=== PATIENT | male | born 2000 | race Caucasian/White ===

== ENCOUNTER 2023-05-08 13:09 | Outpatient (AMB) | payer OTHER, SELFPAY ==
--- NOTE | 2023-05-08 13:15 | MHC.OFFVIS ---
Intake Vital Signs 05/08/23 13:18 Height 5 ft 6 in Weight 172 lb BMI 27.8 BP 122/72 Blood Pressure Location Rt brachial Position Sitting Pulse 58 Pulse Source Pulse Oximeter Pulse Oximetry (%) 99 Oxygen Delivery Method Room Air Intake Visit Reasons: ENP-Sleep Disturbance/night terrors - CONF Intake Note: Patient presents for sleep disturbances and night terrors . Allergies No Known Allergies Allergy (Verified 05/08/23 13:19) HPI HPI Comments History of Present Illness Details 22 y/o male patient presents for new in-person visit for sleep consultation. Pt reports difficulty sleeping, vivid dreams and night terrors. Pt has very vivid dream, wakes up scary and confused, not sure it is real or he still dreaming. He wants to fight in the dream, but he can't move and feels chocking with his blanket and can't breathe. He uses prazosin 3 mg nightly and trazodne 75 mg qHS. Trazdone helps him to fall asleep, but not really helpful to stay sleep. He always had sleep problems since he was a child, woke up with all over the bed, moves his legs a lot. He had a in lab sleep study when he was a child, probably 4-5 years old, and was told that the result was inconclusive. Has hx of cocaine use. Also has chronic back pain, and it also contribute the difficulty sleeping. Sleep questionnaire: Have you ever been diagnosed with a sleep disorder? No. Have you ever had a sleep study in the past? Yes, when he was a child. Have you ever been treated for a sleep disorder? Yes. Do you take medications for a sleep disorder? Prazosin 3 mg, trazodone 75 mg and hydroxyzine. Do you snore? Yes, also had deviated septum. Do you wake up gasping at night? Yes, sometimes. Do you have episodes of apneas? No. If yes, are they witnessed? No. Do you have episodes of nocturnal chest pain or dyspnea? Yes. Do you have difficulty initiating sleep? Yes. Do you have difficulty maintaining sleep? Yes. Do you wake up tired? Yes, sometimes. Do you have headaches upon awakening? Yes. had brain cyst. was evaluated by [facility]. Do you wake up with dry mouth or throat? Yes. Do you have GERD? Yes, sometimes. Do you have nocturia? Yes. Do you have nocturnal leg cramps? No. Do you have symptoms of restless legs? Yes. Do you act out your dreams? Yes. Sleep hygiene questionnaire: What is your usual sleep routine? Usual bedtime is at 9:30-10 pm; Usual wake up time is at 6:15-6:30 am. Do you take naps? Yes, but try not to take a nap. Is your sleep environment cool, dark, and quiet? Yes. Do you exercise? No. Do you take caffeine or other stimulants? Soda, Do you use electronics in bed? What is your work schedule? 8 am to 5 pm. Hypersomnolence questionnaire: Do you have daytime tiredness or fatigue? Yes. Do you easily fall asleep when inactive? Yes. Have you ever had episodes of sudden weakness? No. Have you ever had episodes of sudden weakness associated with strong emotions? No. PFSH Surgical History History of tonsillectomy H/O adenoidectomy Family History (Updated 05/08/23 @ 13:21 by BIGG Fountain) Mother Bipolar 1 disorder Depression Anxiety Brother Anxiety Depression Schizophrenia Social History (Updated 05/08/23 @ 13:22 by BIGG Fountain) Alcohol intake: never e-Cigarette/Vaping Use: Currently Using Review of Systems Const All systems reviewed & are unremarkable except as noted in HPI and below Physical Exam Vital Signs: Last Vital Signs Pulse 58 05/08/23 13:18 BP 122/72 05/08/23 13:18 Pulse Ox 99 05/08/23 13:18 Oxygen Delivery Method Room Air 05/08/23 13:18 BMI result Body Mass Index 27.8 Const General: cooperative Assessment & Plan Assessment & Plan (1) Sleep terror: Code(s): F51.4 - Sleep terrors [night terrors] (2) Restless legs syndrome: Code(s): G25.81 - Restless legs syndrome (3) Snoring: Code(s): R06.83 - Snoring (4) Daytime sleepiness: Code(s): R40.0 - Somnolence (5) REM behavioral disorder: Code(s): G47.52 - REM sleep behavior disorder Plan Pt is advised to undergo in lab sleep study to assess for sleep apnea, REM behavior, and PLMD. Will f/u with pt after study to discuss results and appropriate treatment options. Sleep hygiene education provided, limit electronic use before bedtime and reduce caffeine intake in the evening. Pt to call with any worsening concerns or questions. Advised patient to try magnesium 400 mg qHS for muscle cramping. Orders: Orders RT PSG in-lab sleep study Today F51.4 - Sleep terrors [night terrors], G25.81 - Restless legs syndrome, G47.52 - REM sleep behavior disorder, R06.83 - Snoring, R40.0 - Somnolence Medications: New magnesium oxide 400 mg PO DAILY 30 days 30 tabs 6RF Coding Level of Care Code New Pt Level 3 (99143) Diagnoses Sleep terror F51.4 Restless legs syndrome G25.81 Snoring R06.83 Daytime sleepiness R40.0 REM behavioral disorder G47.52
[2023-05-08 13:18] VITALS: BP 122/72; PULSE 58; O2SAT 99; BMI 27.8
== END 2023-05-08 13:53 | disposition home or self-care (01) ==
PROVIDERS: PCP Internal Medicine; Visit Provider Nurse Practitioner Family
DX: F51.4 Sleep terrors [night terrors] (principal); G25.81 Restless legs syndrome; R06.83 Snoring; R40.0 Somnolence; G47.52 REM sleep behavior disorder
CPT/HCPCS: 99203

== ENCOUNTER → 2023-05-08 13:09 | Outpatient (BNVA) | payer OTHER, SELFPAY | PROVIDERS: PCP Internal Medicine; Visit Provider Nurse Practitioner Family ==

== ENCOUNTER → 2023-05-30 20:30 | Outpatient (REF) | payer OTHER, SELFPAY | LOC: HO.SL 20:30 | PROVIDERS: PCP Physician Assistant Medical; Visit Provider Nurse Practitioner Family | DX: G47.52 REM sleep behavior disorder (principal); G25.81 Restless legs syndrome; F51.4 Sleep terrors [night terrors]; R06.83 Snoring; R40.0 Somnolence | CPT/HCPCS: 95810 ==

== ENCOUNTER → 2023-05-30 22:30 | Outpatient (BNV) | payer OTHER, SELFPAY | PROVIDERS: PCP Physician Assistant Medical; Visit Provider Psychiatry & Neurology Neurology | DX: R06.83 Snoring (principal); R40.0 Somnolence | CPT/HCPCS: 95810 ==

== ENCOUNTER 2023-10-16 14:26 | Outpatient (AMB) | payer BC, SELFPAY ==
--- NOTE | 2023-10-16 14:29 | MHC.OFFVIS ---
Vital Signs 10/16/23 14:30 Height 5 ft 6 in Weight 168 lb BMI 27.1 BP 122/80 Blood Pressure Location Rt brachial Position Sitting Pulse 68 Pulse Source Pulse Oximeter Pulse Oximetry (%) 98 Oxygen Delivery Method Room Air Intake Visit Reasons: Follow up Intake Note: Patient presents for follow up. having bad anxiety,loss of enjoyment, no motivation at all has not been working for the last 2 weeks. Allergies No Known Allergies Allergy (Verified 10/16/23 14:32) HPI Comments Details: 22-yr-old male presents for f/u visit. 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 His sleep study did not show sleep apnea- AHI was AHI 1/hr, O2 ana 88%, sleep onset 0.2 min, REM sleep onset was 0.5 minutes. He can still unrefereshing sleep. He tosses and turns a lot at night. He is prone to dreaming. Easily falls into dream sleep, especially during naps. He can have sleep paralysis- where in the dream he feels paarlyzed. He wakes up and feels his dream is real. 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 Denies specific weakness with strong emotion. He occasionally has restless legs, urge to move. He has always been to fall asleep in class or when not interested, he easily falls asleep when inactive, long car rides. He is not taking any stimulants- nothing prior to the last sleep study. Denies alcohol use. He was taking Sertraline- stopped 5 days ago- stopped as he felt it was not working and may have been suppressing his motivation. He does take Trazodone 75mg qhs- he did take this prior to the sleep study. He was on unprescribed fentanyl His mother has similar symptoms. [facility] Surgical History History of tonsillectomy H/O adenoidectomy Family History Mother Bipolar 1 disorder Depression Anxiety Brother Anxiety Depression Schizophrenia Social History Alcohol intake: never e-Cigarette/Vaping Use: Currently Using Physical Exam Vital Signs: Last Vital Signs Pulse 68 10/16/23 14:30 BP 122/80 10/16/23 14:30 Pulse Ox 98 10/16/23 14:30 Oxygen Delivery Method Room Air 10/16/23 14:30 BMI result Body Mass Index 27.1 Const General: cooperative and no acute distress Orientation/consciousness: patient oriented x3 Resp Effort & Inspection: normal respiratory effort and able to speak in complete sentences Neuro General: patient oriented x3 Cranial nerves: Yes CN's II-XII intact bilaterally Cognition (Neuro): normal cognition Psych Appearance: grossly normal Mental Status: mental status grossly normal Speech and movement: Normal speech and movement present Affect: normal affect Attitude: cooperative Results Reviewed Results Reviewed: [facility] [employer] MEDICAL Imaging Result Report Patient: Torsten Rader Date of Service: 01/16/23 ? ? Patient Gender: Male Ordering Provider: Kishore Lucio : 00 ? ? ? Final MRI OF BRAIN NO CONTRAST Exam Date: 01/16/2023 6:18 PM Ordering Diagnosis: Cerebral cystsMigraine syndromeInsomnia, unspecified typeNight terrors ? MRI BRAIN WITHOUT CONTRAST ? Clinical Statement: Mental status changes, nightmares, sleep disturbance ? Comparison: No similar prior ? Technique: Multiplanar, multisequence MR images of the brain were obtained without contrast. ? Findings: There is no evidence of diffusion restriction. Minimal white matter hyperintensities within the supraventricular and periventricular region consistent with microvascular ischemic changes. Normal intracranial flow voids. Incidentally noted arachnoid cyst within the left temporal lobe measuring 1.9 x 4.0 cm. The ventricular system is normal in size and morphology. The basilar cisterns are normal. The craniocervical junction is normal. The orbits and globes are within normal limits. Mild mucosal thickening within the paranasal sinuses. There are very subtle rounded lucencies which appear to be within the scalp. ? IMPRESSION 1. No acute intracranial process. 2. Incidentally noted arachnoid cyst within the left temporal lobe. 3. Very subtle rounded lucencies which appear to be within the scalp, correlate with direct visualization, CT head can also be considered ? Reading Radiologist: Assessment & Plan Assessment & Plan (1) Excessive daytime sleepiness: Code(s): G47.19 - Other hypersomnia Category: Medical (2) Sleep paralysis: Code(s): G47.8 - Other sleep disorders Category: Medical (3) Restless legs syndrome: Code(s): G25.81 - Restless legs syndrome Category: Medical Plan Reviewed in-lab PSG- no evidnece for sleep apnea, however pt had very short sleep onset and REM sleep onset of 0.5 min. Thus, pt advised to undergo in-lab PSG w/ MSLT to assess for signs of narcolepsy. Pt will stop Trazdone and Prazosin. Discussed Trazodone may exacerbate RLS s/s- which he does sometimes notice. Orders: Orders RT PSG in-lab sleep study Today G47.19 - Other hypersomnia, G47.52 - REM sleep behavior disorder, G47.8 - Other sleep disorders Drug Screen Urine Today G47.19 - Other hypersomnia RT sleep testing - MSLT Today G47.19 - Other hypersomnia, G47.52 - REM sleep behavior disorder, G47.8 - Other sleep disorders Coding Level of Care Code Est Pt Level 4 (83176) Diagnoses Excessive daytime sleepiness G47.19 Sleep paralysis G47.8 Restless legs syndrome G25.81
[2023-10-16 14:30] VITALS: BP 122/80; PULSE 68; O2SAT 98; BMI 27.1
== END 2023-10-16 15:15 | disposition home or self-care (01) ==
PROVIDERS: PCP Internal Medicine; Visit Provider Nurse Practitioner Family
DX: G47.19 Other hypersomnia (principal); G47.8 Other sleep disorders; G25.81 Restless legs syndrome
CPT/HCPCS: 99214

== ENCOUNTER → 2023-10-16 14:26 | Outpatient (BNVA) | payer BC, SELFPAY | PROVIDERS: PCP Internal Medicine; Visit Provider Nurse Practitioner Family ==

== ENCOUNTER → 2023-12-13 19:30 | Outpatient (REF) | payer BC, SELFPAY | LOC: HO.SL 19:30 | PROVIDERS: PCP Internal Medicine; Visit Provider Nurse Practitioner Family | DX: G47.19 Other hypersomnia (principal); G47.8 Other sleep disorders; G47.52 REM sleep behavior disorder | CPT/HCPCS: 95810 ==

== ENCOUNTER → 2023-12-13 21:12 | Outpatient (BNV) | payer BC, SELFPAY | PROVIDERS: PCP Internal Medicine; Visit Provider Psychiatry & Neurology Neurology | DX: G47.19 Other hypersomnia (principal); G47.8 Other sleep disorders | CPT/HCPCS: 95810 ==

== ENCOUNTER 2023-12-14 14:43 | Outpatient (REF) | payer BC, SELFPAY ==
[2023-12-14 15:04] LABS: Amphetamine Screen Urine Not Detected (Not Detect); Barbiturates, Urine Not Detected (Not Detect); Benzodiazepines Screen Urine Not Detected (Not Detect); Buprenorphine Scr Not Detected (Not Detect); Cannabinoid Screen Urine POSITIVE (Not Detect); Cocaine Screen Urine Not Detected (Not Detect); Fentanyl, urine POSITIVE (Not Detect); Methadone Screen, Urine Not Detected (Not Detect); Opiate Screen Urine POSITIVE (Not Detect); Oxycodone Screen Urine Positive (Not Detect); Phencyclidine Screen Urine Not Detected (Not Detect)
== END 2023-12-14 14:44 | disposition home or self-care (01) ==
LOC: HO.LNP 14:43
PROVIDERS: Visit Provider Nurse Practitioner Family
DX: G47.19 Other hypersomnia (principal); F11.90 Opioid use, unspecified, uncomplicated; G47.52 REM sleep behavior disorder
CPT/HCPCS: 80307

== ENCOUNTER 2024-01-02 09:52 | Outpatient (AMB) | payer BC, SELFPAY ==
--- NOTE | 2024-01-02 10:03 | MHC.OFFVIS ---
Vital Signs 01/02/24 10:05 Height 5 ft 6 in Weight 167 lb 4 oz BMI 27.0 BP 148/70 H Blood Pressure Location Lt brachial Position Sitting Intake Visit Reasons: Follow up Intake Note: Patient reports being depressed and is experiencing more panic attacks. He also reports that he is easily irritated and becomes angry. He states that no one is helping him. Shoe Fitter Required: No Accompanied by: Self / Same As Patient Allergies No Known Allergies Allergy (Verified 01/02/24 10:04) Medication List - Last Reconciled 01/02/24 by Linsey Fernandez, RENE sumatriptan 20 mg/actuation 20 mg intranasal Q2H PRN HPI Comments Details: 22-yr-old male presents for f/u visit to discuss results of recent in-lab PSG/MSLT sleep studies. 12/31/2023 in-lab sleep study was significant for a short REM latency of 2.5 minutes. There was no evidence of sleep apnea or sleep-related movement disorders in the study. His sleep study did not show sleep apnea- AHI was AHI 1/hr, O2 ana 88%, sleep onset 0.2 min, REM sleep onset was 2.5 minutes. AHI 1.5 per hour sleep, average oxygen level 95% with O2 ana of 89%. Sleep efficiency of 76%. Periodic limb movement of sleep 0 per hour. Unfortunately MSLT component of sleep study could not be analyzed, as patient had a positive urine screen for urine opiates, oxycodone, fentanyl, marijuana. Patient endorses that he had used a substance which he states is equivalent to fentanyl the morning of the sleep study. He states most likely she did use the same substance prior to his last sleep study. Patient endorses that in the past he had become dependent on opioids following being medicated for back pain. More recently, he is using this fentanyl equivalent substance proximally 4 times a week to manage anxiety and panic attacks, which he attributes to living with his mother and grandmother which is inducing increased stress. He denies alcohol use. He moved in with his mother and grandmother as he has enrolled in a [employer] training program. She is hoping to complete this 10 month program to be able to move to the [facility]. He does not currently have a psychiatric care team. Patient had previously taking sertraline at 75-100 mg a day, states it was ineffective, made him feel a lack of motivation. However he now notes that he is not feeling very mentally stable at this point. He stopped trazodone 75mg prior to the MSLT study. He denies history of known kendall. Sometimes he can feel as if voices are present. He denies suicidal ideation. He states both his mother and grandmother have a history of bipolar and substance abuse issues. Reviewed patient's sleep symptoms: He can still unrefereshing sleep. He tosses and turns a lot at night. He is prone to dreaming. Easily falls into dream sleep, especially during naps. He can have sleep paralysis- where in the dream he feels paralyzed. He wakes up and feels his dream is real. Today endorses weakness with strong emotion. He occasionally has restless legs, urge to move. He has always been to fall asleep in class or when not interested, he easily falls asleep when inactive, long car rides. His mother has similar sleep symptoms as well. [facility] Surgical History History of tonsillectomy H/O adenoidectomy Family History Mother Bipolar 1 disorder Depression Anxiety Brother Anxiety Depression Schizophrenia Social History Alcohol intake: never e-Cigarette/Vaping Use: Currently Using Physical Exam Vital Signs: Last Vital Signs BP 148/70 H 01/02/24 10:05 BMI result Body Mass Index 27.0 Const General: cooperative and no acute distress Orientation/consciousness: patient oriented x3 Resp Effort & Inspection: normal respiratory effort and able to speak in complete sentences Neuro General: patient oriented x3 Cranial nerves: Yes CN's II-XII intact bilaterally Cognition (Neuro): normal cognition Psych Appearance: grossly normal Mental Status: mental status grossly normal Speech and movement: Normal speech and movement present Affect: Sad affect present, Anxious affect present and Other affect and mood findings present (at times tearing/crying) Attitude: cooperative Thought process: Normal thought process present Thought content: Depressive thoughts present Assessment & Plan Assessment & Plan (1) 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 However patient does have significant shortly latency of REM sleep of 2.5 minutes. Unfortunately, MSLT results could not be interpreted due to patient has positive urine drug screen. Discuss that if workup does reveal a positive narcolepsy diagnosis, most treatments would be contraindicated for him if he continues to use illicit opioid substances. Offered patient a referral to an addiction medicine center, however patient declines as he is currently enrolled in a [employer] program. Patient accepts a referral to outpatient addiction medicine clinic. Will start patient on Latuda 20 mg p.o. q.h.s. taking with food, we will check in with patient in 1 week to assess tolerance. Discussed with patient that I would avoid a SSRI type medication as I suspect patient may have risk factors for bipolar disorder considering his current symptoms and strong family history of bipolar and substance use disorder. Discussed that the use of SSRIs in people with bipolar who are not on a concomitant opposing mood stabilizer, are at risk for worsening of mood disorders. Reviewed common side effects of Latuda, and patient will reach out to us with any untoward effects. Will will refill hydroxyzine 25 mg p.o. t.i.d. order. Will request psychiatry and psychotherapy evaluation and treatment. Will refer patient to a tertiary sleep clinic. In the meantime, while the above is pending, we will obtain a CSF Orexin level to confirm a narcolepsy type 1 diagnosis. Reviewed post LP care, including need for rest, increase fluids, caffeine. Patient verbalized agreement with the above plan. Follow-up in 1-2 months or sooner as needed. Orders: Orders FL guided lumbar puncture LP 01/02/24 F11.90 - Opioid use, unspecified, uncomplicated, F31.9 - Bipolar disorder, unspecified, G47.411 - Narcolepsy with cataplexy Other Ref Test - [facility] [place] Today G47.411 - Narcolepsy with cataplexy Referrals Psychology Referral F11.90 - Opioid use, unspecified, uncomplicated, F31.9 - Bipolar disorder, unspecified Sleep Medicine Referral F11.90 - Opioid use, unspecified, uncomplicated, F31.9 - Bipolar disorder, unspecified, G47.411 - Narcolepsy with cataplexy Psychiatry Referral F1.90 - Opioid use, unspecified, uncomplicated, F31.9 - Bipolar disorder, unspecified Addiction Medicine Referral F1.90 - Opioid use, unspecified, uncomplicated, F31.9 - Bipolar disorder, unspecified Medications: New lurasidone (Latuda) must administer with food (at least 350 calories) 20 mg PO QPM 30 days 30 tabs 1RF Changed From hydroxyzine HCl 25 mg PO TID PRN To hydroxyzine HCl 25 mg PO TID 30 days PRN 60 tabs 1RF anxiety Coding Level of Care Code Est Pt Level 4 (27869) Complex EM visit Add On G2211 Diagnoses Cataplexy G47.411 Bipolar depression F31.9 Opioid use disorder F11.90 REM behavioral disorder G47.52 Restless legs syndrome G25.81 Excessive daytime sleepiness G47.19
[2024-01-02 10:05] VITALS: BP 148/70; BMI 27.0
== END 2024-01-02 11:13 | disposition home or self-care (01) ==
PROVIDERS: PCP Internal Medicine; Visit Provider Nurse Practitioner Family
DX: G47.411 Narcolepsy with cataplexy (principal); F31.9 Bipolar disorder, unspecified; F11.90 Opioid use, unspecified, uncomplicated; G47.52 REM sleep behavior disorder; G25.81 Restless legs syndrome; G47.19 Other hypersomnia
CPT/HCPCS: 99214

== ENCOUNTER → 2024-01-02 09:52 | Outpatient (BNVA) | payer BC, SELFPAY | PROVIDERS: PCP Internal Medicine; Visit Provider Nurse Practitioner Family ==

== ENCOUNTER 2024-01-28 07:52 | Outpatient (AMB) | payer BC, SELFPAY ==
--- NOTE | 2024-01-28 07:52 | MHC.OFFVIS ---
Intake Visit Reasons: Follow Up 1mo Intake Note: follow up Allergies No Known Allergies Allergy (Verified 01/28/24 07:53) Medication List - Last Reconciled 01/28/24 by RENE Rey hydroxyzine HCl 25 mg PO TID PRN 30 days lurasidone (Latuda) 40 mg PO QPM 30 days sumatriptan 20 mg/actuation 20 mg intranasal Q2H PRN HPI Comments Details: 23-yr-old male presents for f/u visit of restless leg, sleep disorder, mood disorder. Since the last visit, patient has started Latuda 20 mg q.d., which we increased to 40 mg q.d. He is tolerating this well. However, he has not noticed a significant improvement in his mood. He can still become easily frustrated and angry, especially if he does not do as well as he would like with his schoolwork. Note, he is 10 weeks into a 10 month [employer] program. He did not restart hydroxyzine, as the refill contained red tablets, and his mother had told him that he had had a reaction to red in the past. She stated he was given a red medication to calm him down prior to MRI when he was younger, and it had the opposite reaction, where they had to give him much more of a dose unusual. Patient states he is able to eat foods with red dye in them, such as M and M's and skittles. He is trying to reduce his fentanyl use. Now finds that he is prone to use fentanyl when his restless legs symptoms are worse. He describes the RLS symptoms as cramping, burning, like a creepy crawly sensation, and an urge to move. These will typically occur around 03:00, about 3 hours after going to sleep. The other night, he did try some of his old gabapentin 300 mg- was prescribed for back pain, which did offer some relief. He does use a weighted blanket. Getting up and moving can help, but sometimes he is up for hours walking. He has an appointment with [facility] on February 07. He is scheduled for the lumbar puncture for CSF orexin level also on February 07. 01/02/24 HPI: 12/31/2023 in-lab sleep study was significant for a short REM latency of 2.5 minutes. There was no evidence of sleep apnea or sleep-related movement disorders in the study. His sleep study did not show sleep apnea- AHI was AHI 1/hr, O2 ana 88%, sleep onset 0.2 min, REM sleep onset was 2.5 minutes. AHI 1.5 per hour sleep, average oxygen level 95% with O2 ana of 89%. Sleep efficiency of 76%. Periodic limb movement of sleep 0 per hour. Unfortunately MSLT component of sleep study could not be analyzed, as patient had a positive urine screen for urine opiates, oxycodone, fentanyl, marijuana. Patient endorses that he had used a substance which he states is equivalent to fentanyl the morning of the sleep study. He states most likely she did use the same substance prior to his last sleep study. Patient endorses that in the past he had become dependent on opioids following being medicated for back pain. More recently, he is using this fentanyl equivalent substance proximally 4 times a week to manage anxiety and panic attacks, which he attributes to living with his mother and grandmother which is inducing increased stress. He denies alcohol use. He moved in with his mother and grandmother as he has enrolled in a [employer] training program. She is hoping to complete this 10 month program to be able to move to the [facility]. He does not currently have a psychiatric care team. Patient had previously taking sertraline at 75-100 mg a day, states it was ineffective, made him feel a lack of motivation. However he now notes that he is not feeling very mentally stable at this point. He stopped trazodone 75mg prior to the MSLT study. He denies history of known kendall. Sometimes he can feel as if voices are present. He denies suicidal ideation. He states both his mother and grandmother have a history of bipolar and substance abuse issues. Reviewed patient's sleep symptoms: He can still unrefereshing sleep. He tosses and turns a lot at night. He is prone to dreaming. Easily falls into dream sleep, especially during naps. He can have sleep paralysis- where in the dream he feels paralyzed. He wakes up and feels his dream is real. Today endorses weakness with strong emotion. He occasionally has restless legs, urge to move. He has always been to fall asleep in class or when not interested, he easily falls asleep when inactive, long car rides. His mother has similar sleep symptoms as well. [facility] Medical History (Updated 01/28/24 @ 08:41 by RENE Rey) Anemia Surgical History History of tonsillectomy H/O adenoidectomy Family History Mother Bipolar 1 disorder Depression Anxiety Brother Anxiety Depression Schizophrenia Social History Alcohol intake: never e-Cigarette/Vaping Use: Currently Using Physical Exam Const General: cooperative and no acute distress Orientation/consciousness: patient oriented x3 Resp Effort & Inspection: normal respiratory effort and able to speak in complete sentences Neuro General: patient oriented x3 Cognition (Neuro): normal cognition Psych Appearance: grossly normal Mental Status: mental status grossly normal Speech and movement: Normal speech and movement present Affect: normal affect Attitude: cooperative Telehealth Telehealth Telehealth Platform: [employer] Location of provider rendering services: practice address Location of patient: address on file Patient Identification confirmed using: Name, : Yes Telehealth method: video Patient verbally consented to treatment: Yes Patient verbally consented to billing insurance company: Yes Patient informed of any privacy concerns related to visit: Yes Minutes spent on Phone/Video with Pt.: 24 Assessment & Plan Assessment & Plan (1) Cataplexy: Code(s): G47.411 - Narcolepsy with cataplexy Category: Medical (2) Bipolar depression: Code(s): F31.9 - Bipolar disorder, unspecified Category: Medical (3) Opioid use disorder: Code(s): F11.90 - Opioid use, unspecified, uncomplicated Category: Medical (4) REM behavioral disorder: Code(s): G47.52 - REM sleep behavior disorder Category: Medical (5) Restless legs syndrome: Code(s): G25.81 - Restless legs syndrome Category: Medical (6) Excessive daytime sleepiness: Code(s): G47.19 - Other hypersomnia Category: Medical Plan Increase Latuda from 40 mg p.o. q.h.s. to 60 mg q.h.s. taking with food. Will avoid a SSRI type medication as I suspect patient may have risk factors for bipolar disorder considering his current symptoms and strong family history of bipolar and substance use disorder. Start gabapentin 400 mg q.h.s. scheduled- for RLS and mood. Start gabapentin 100-200 mg daily p.r.n. breakthrough RLS symptoms. Hold hydroxyzine 25 mg p.o. t.i.d. order- though likely, patient does not have a red dye allergy, possibly had a paradoxical reaction to medication given prior to MRI. Reviewed simple strategies for RLS treatment, including stretching, OTC RLS topical creams, mild compression tx's, weighted blankets. Patient may benefit from reading ?Navigating life with restless leg syndrome ?by Dr. Herb Tinajero. Will check labs for common etiologies of RLS s/s. Comprehensive care center appointment as scheduled on February 07. Psychiatry and psychotherapy evaluation and treatment as ordered Tertiary sleep clinic consult request order in place. LP for CSF Orexin level to confirm a narcolepsy type 1 diagnosis- as scheduled on February 07. Reviewed post LP care, including need for rest, increase fluids, caffeine, small supply of Fioricet provided for severe orthostatic headache. Patient verbalized agreement with the above plan. Follow-up in 1 months or sooner as needed. Orders: Orders Vitamin B12 and Folate Today D64.9 - Anemia, unspecified, G25.81 - Restless legs syndrome IRON PROFILE Today D64.9 - Anemia, unspecified, G25.81 - Restless legs syndrome Ferritin Today D64.9 - Anemia, unspecified, G25.81 - Restless legs syndrome Homocysteine Today D64.9 - Anemia, unspecified, G25.81 - Restless legs syndrome Magnesium Today D64.9 - Anemia, unspecified, G25.81 - Restless legs syndrome Complete Blood Count Auto Diff Today D64.9 - Anemia, unspecified, G25.81 - Restless legs syndrome Comprehensive Met. Panel Today D64.9 - Anemia, unspecified, G25.81 - Restless legs syndrome TSH reflex Free T4 Today D64.9 - Anemia, unspecified, G25.81 - Restless legs syndrome Vitamin D 25-OH (D2 and D3) Today D64.9 - Anemia, unspecified, G25.81 - Restless legs syndrome Erythrocyte Sedimentation Rate Today D64.9 - Anemia, unspecified, G25.81 - Restless legs syndrome CRP High Sensitivity Today D64.9 - Anemia, unspecified, G25.81 - Restless legs syndrome Methylmalonic Acid Today D64.9 - Anemia, unspecified, G25.81 - Restless legs syndrome Creatine Kinase Total Today D64.9 - Anemia, unspecified, G25.81 - Restless legs syndrome Medications: New gabapentin 400 mg PO BEDTIME 30 days 30 caps 2RF tznxmvhogd-jngvyxoisexdd-pqmt 50-325-40 mg 1 cap PO Q4H 30 days PRN 20 caps 0RF post-LP headache gabapentin 100 - 200 mg (1 - 2 x 100 mg) PO ONCE 30 days PRN 60 caps 2RF breakthrough restless legs lurasidone (Latuda) must administer with food (at least 350 calories) 60 mg PO DAILY 30 days 30 tabs 1RF Discontinued lurasidone (Latuda) must administer with food (at least 350 calories). Increasing dose to 40 mg effective 01/09/2024 Discontinued Reason: Doctor's Order 40 mg PO QPM 30 days 30 tabs 3RF Coding Level of Care Code Tele Est Pt Level 4 (22476) Complex EM visit Add On G2211 Diagnoses Cataplexy G47.411 Bipolar depression F31.9 Opioid use disorder F11.90 REM behavioral disorder G47.52 Restless legs syndrome G25.81 Excessive daytime sleepiness G47.19
== END 2024-01-31 08:06 | disposition home or self-care (01) ==
LOC: HO.HSMS 07:52
PROVIDERS: PCP Internal Medicine; Visit Provider Nurse Practitioner Family
DX: G47.411 Narcolepsy with cataplexy (principal); F31.9 Bipolar disorder, unspecified; F11.90 Opioid use, unspecified, uncomplicated; G47.52 REM sleep behavior disorder; G25.81 Restless legs syndrome; G47.19 Other hypersomnia
CPT/HCPCS: 99214

== ENCOUNTER 2024-02-08 09:34 | Day surgery (SDC) | payer BC, SELFPAY ==
--- NOTE | ~2024-02-08 | FL_ITS ---
FLUOROSCOPIC LUMBAR PUNCTURE Indication: Narcolepsy. Risks and benefits and possible complications were discussed with the patient and the consent form was signed. Patient was placed prone on the fluoroscopy table. The back was prepped and draped in routine sterile fashion. Betadine was used as a skin antiseptic. Utilizing fluoroscopic guidance, the L3-4 interlaminar space was accessed with a 22 gague Leroy spinal needle and clear CSF fluid was obtained. 4 cc of clear CSF was removed and sent for analysis. The needle was removed without immediate complications. Total fluoroscopy time: 0.9 min FL/FL guided lumbar puncture LP Impression: Successful fluoroscopic guided lumbar puncture at L3-L4. This procedure was performed by Pedro Ugarte PA-C and supervised by Dr. Alvares. Electronically signed by: Navid Alvares MD 02/11/2024 03:28 PM RAHEEM
[2024-02-08 09:57] VITALS: BMI 25.2
[2024-02-08 10:04] VITALS: BP 113/66; PULSE 73; RESP 16; TEMP 37; O2SAT 99
[2024-02-08 11:30] VITALS: BP 107/58; PULSE 63; RESP 17; TEMP 36.8; O2SAT 99
[2024-02-08 11:45] VITALS: BP 103/68; PULSE 48; RESP 16; O2SAT 99
[2024-02-08 12:00] VITALS: BP 97/67; PULSE 50; RESP 16; O2SAT 98
[2024-02-08 12:15] VITALS: BP 106/67; PULSE 52; RESP 16; O2SAT 98
[2024-02-08 12:30] VITALS: BP 109/63; PULSE 53; RESP 16; TEMP 36.8; O2SAT 98
== END 2024-02-08 12:46 | disposition home or self-care (01) ==
PROVIDERS: Physician Assistant Surgical; PCP Internal Medicine; Visit Provider Nurse Practitioner Family
PROC: 009U3ZZ Drainage of Spinal Canal, Percutaneous Approach (ICD-10-PCS; CPT 62270; principal; 2024-02-08 11:00)
DX: G47.411 Narcolepsy with cataplexy (principal); F31.9 Bipolar disorder, unspecified; G47.52 REM sleep behavior disorder; G25.81 Restless legs syndrome; G47.19 Other hypersomnia; F41.0 Panic disorder [episodic paroxysmal anxiety]; F41.9 Anxiety disorder, unspecified; F11.90 Opioid use, unspecified, uncomplicated; Z79.899 Other long term (current) drug therapy
CPT/HCPCS: 62328; J2003

== ENCOUNTER → 2024-02-08 10:19 | Outpatient (BNV) | payer BC, SELFPAY | PROVIDERS: PCP Internal Medicine; Visit Provider Physician Assistant Surgical | DX: G47.411 Narcolepsy with cataplexy (principal) | CPT/HCPCS: 62328 ==

== ENCOUNTER 2024-03-07 09:06 | Outpatient (AMB) | payer BC, SELFPAY ==
[2024-03-07 09:00] VITALS: BP 130/70; PULSE 88; RESP 16; O2SAT 98
--- OUTSIDE RECORDS SUMMARY | 2024-03-07 09:30 | XMS_ITS | Clinical Summary ---
Author Organization [facility] [address] [facility] Address [address] [place] [address] Phone Care Team Providers Care Medical Historian Name Role Phone Hortensia Barnes MD Primary Care Prov ider Allergies No known active allergies Medications Medication Sig Dispensed Refills Start Date End Date Status magnesium oxide (MAG-OX) 400 mg (241.3 elemental magnesium) tablet Take 1 Tablet by mouth daily. 06/13/2023 Active ondansetron (ZOFRAN) 4 mg tablet Take 1-2 Tablets by mouth every 8 hours as needed for Nausea. 06/13/2023 Active pramipexole (MIRAPEX) 0.25 mg tablet Take 1 Tablet by mouth 3 times daily. 06/13/2023 Active prazosin (MINIPRESS) 1 mg capsule TAKE 3 CAPSULES BY MOUTH AT BEDTIME FOR 360 DAYS. 08/02/2023 Active SUMAtriptan (IMITREX) 20 mg/actuation nasal spray 1 [place] by Nasal route as needed for Migraine. 04/11/2021 Active traZODone (DESYREL) 50 mg tablet TAKE 1 AND 1/2 TABLETS BY MOUTH AT BEDTIME 135 tablet 01/11/2024 Active sertraline (ZOLOFT) 50 mg tablet TAKE 1 AND 0.5 TABLETS BY MOUTH DAILY 135 tablet 01/11/2024 Active Active Problems Problem Noted Date Diagnosed Date Marijuana use 11/09/2022 Night terrors 11/09/2022 Anemia 01/04/2022 Insomnia 11/18/2021 Anxiety 07/07/2021 Mild episode of recurrent major depressive disor jenaro 07/07/2021 Deviated septum 03/20/2017 Overview (11/08/2023): ENT Dr Richardson 06/22 - recommends defering surgery till he is done playing contact sports Neck injury 08/18/2016 Overview (11/08/2023): 11/20 - football injury; PT referral Pneumonia 12/22/2014 Overview (11/08/2023): 12/20, RUL Overweight 02/13/2011 Overview (11/08/2023): Mild since age 9 Acute sinusitis 01/27/2011 Overview (11/08/2023): 05/16 Cerebral cysts 08/31/2005 Overview (11/08/2023): seen by dr heller 2004, MRI unchanged from 07/10 - 09/10, repeat 02/14- unchnaged [facility] due to unusual headaches 02/14, seen by Dr Kishore Gates, felt cyst not contributory to headaches and no rx indicated Migraine syndrome 08/31/2005 Overview (11/08/2023): EEG nl 09/09 Dr ford 11/10 previously on Periactin 09/09-11/09, not effective ?LVH on EKG, but nl cardiac echo 01/10 Nl metabolic labs 03/15 04/13 - trial of phenergan supp plus periactin 2 mg bid at onset of headache 12/14 - another episode 02/14 - trial cyproheptadine 4 mg at hs at onset of headche x 4 days 04/14 - trial sumatriptin nasal spray 5 mg daily x 4 days 08/16 - eye exam-myopia, otherwise nl by dr cerrato 07/16 - start riboflavin 200 mg daily for prophylaxis 11/16: riboflavin 200 mg BID and Mg Gluconate 500 mg daily 05/20 - riboflavin and magnesium d/c'd; ibuprofen and sumatriptan nasal spray prn 11/19 - worsening, 6 day prednisone burst and increased dose sumatriptan (10 mg) prescribed by Dr Ford; also referred to PT for cervical myofascial pain due to football injury 01/19 - restart Mg and riboflavin 08/21 - no longer on Mg and riboflavin; takes sumatriptan 20 mg prn, 4-5 episodes a year Encounters Date Type Department Care Team Description 01/01/2024 Nurse Triage Adult Medicine [address] [address] Hortensia Barnes MD mental health crisis; triage call back from Last 3 Months Immunizations Name Administration Dates Next Due DTaP (Infanrix) 6wks to less than 7yo ,12/30/2002,04/25/2001,03/05,01/01/2001 [id number]-[id number]-HBP (Pentacel) 2mo to less than 5yo 02/12/2002,04/25/2001,03/05/2001,01/01 HPV, Quadrivalent 07/24/2014 Hepatitis B Pediatric (Enger ix B; Recombivax HB) to less than 20 yo 08/22/2001,2000,2000 IPV Inactivated polio (Ipol) 6wks and older 07/24/2014,10/31/2001,08/22/2001,03/05,01/01/2001 Influenza trivalent, 0.5mL, preservative free (Fluarix; FluLaval; Fluzone) ages 6mo and older (Afluria) 3 years and older 01/10/2016,02/13/2011 Influenza trivalent, with pr eservative (Fluzone; Afluria) 6mo and older 09/22/2017,01/23/2012,10/18/2009,11/12,01/23/2007,01/04/2006,03/17/2002 ,02/12/2002 MMR, measles mumps and rubel la Live (Priorix; M-M-R II) 12mo and older 01/04/2005,02/12/2002 Meningococcal MCV4P 04/22/2018,02/23/2012 Pneumococcal Conjugate Vacci ne, 7 Valent 01/04/2005,04/25/2001,03/05/2001,01/01 Pneumococcal polysaccharide 23 valent (Pneumovax 23) 2yo and older 01/01/2001 Tdap Tetanus diptheria acell ular pertussis (Boostrix; Adacel) 7yo and older 02/23/2012 Varicella live (Varivax) 12m o and older 10/18/2009,10/31/2001 Surgical History Surgery Date Site/Laterality Comments ADENOIDECTOMY PROCEDURE: HISTORICAL ADENOIDECTOMY TONSILLECTOMY PROCEDURE: HISTORICAL TONSILLECTOMY Medical History Medical History Date Comments Migraine, unspecified, witho ut mention of intractable migraine without mention of status migrainosus 08/31/2005 DX:Migraine, uns pecified, without mention of intractable migraine without mention of status migrainosus; COMMENT: EEG nkl 09/09 neurology consult 11/10 previously on Periactin 09/09-11/09, not effective Cerebral cysts 08/31/2005 DX:Cerebral cyst s; COMMENT: seen by dr heller 2004, MRI unchanged from 07/10 - 09/10 Wheezing 09/08 DX:Wheezing Attention deficit disorder w ith hyperactivity(314.01) 01/02/2006 DX:Attention deficit disorde r with hyperactivity(314.01); COMMENT: see resolved problems Thumb fracture 07/15 DX:Thumb fractur e; COMMENT: R thumb Thumb fracture 11/14 DX:Thumb fractur e; COMMENT: L thumb Sprain of right ankle 04/15 DX:Sprain of right ankle Concussion 05/18 DX:Concussion; C OMMENT: no LOC Boxer's fracture 05/19 DX:Boxer's frac ture; COMMENT: R hand Snoring 04/30/2007 DX:Snoring; COMM ENT: Borderline sleep study 04/12, seen by dr ewing 06/12, ent, T& A 07/13 Cervical myofascial pain syndrome 11/24/2014 DX:Cervical myofascial pain syndrome; COMMENT: 11/19 - seen by Dr Ford, likely due to football injury, ref to PT Family History Medical History Relation Name Comments Cataracts Maternal Grandmother great Heart attack Maternal Grandmother great age 69 Other cancer Maternal Grandmother great thyroid Relation Name Status Comments Maternal Grandmother great Alive Mother Alive Social History Tobacco Use Types Packs/Day Years Used Date Smoking Tobacco: Never Smokeless Tobacco: Never Alcohol Use Standard Drinks/Week Comments No 0 (1 standard drink = 0.6 oz pur e alcohol) Sex and Gender Information Value Date Recorded Sex Assigned at Not on file Gender Identity Not on file Sexual Orientation Not on file Job Start Date Occupation Industry Not on file Not on file Not on file Obstetrics History Last Filed Vital Signs Vital Sign Reading Time Taken Comments Blood Pressure 115/75 08/14/2023 3:43 PM EDT Pulse 68 08/14/2023 3:43 PM EDT Temperature - - Respiratory Rate - - Oxygen Saturation - - Inhaled Oxygen Concentration - - Weight 79.8 kg (176 lb) 08/14/2023 3:43 PM EDT Height 170.2 cm (5' 7 ) 08/14/2023 3:43 PM EDT Body Mass Index 27.57 08/14/2023 3:43 PM EDT Plan of Treatment Health Maintenance Due Date Last Done Comments HPV Vaccines (2 - Male 2-dose series) 01/23/2015 07/24/2014 Social Influencers of Health Screening 01/08/2022 DTaP,Tdap,and Td Vaccines (7 - Td or Tdap) 02/22/2022 02/23/2012, 10/13/2005, 12/30/2002, Additional history exists COVID-19 Vaccine ( season) 2023 Influenza Vaccine (#1) 2023 8, 01/10/2016, 01/23/2012, Additional history exists Depression Screening 10/10/2024 10/11/2023 Cholesterol Screening (Lipid Panel) 11/18/2026 11/18/2021 Hepatitis B Vaccines Completed 08/22/2001, 2000, 2000 HIB Vaccines Completed 02/12/2002, 04/06, 03/05/2001, Additional history exists MMR Vaccines Completed 01/04/2005, 02/12/2002 Pneumococcal Vaccine: Pediatrics (0 to 5 Years) and At-Risk Patients (6 to 64 Years) Completed 01/04/2005, 04/25/2001, 03/05/2001, Additional history exists Varicella Vaccines Completed 10/18/2009, 10/31/2001 IPV Vaccines Completed 07/24/2014, 09/2002, 10/31/2001, Additional history exists Meningococcal ACWY Vaccine Completed 04/22/2018, HIV Screening Completed 04/11/2021 Hepatitis C Screening Completed 04/11/2021 Hepatitis A Vaccines Aged Out No long er eligible based on patient's age to complete this topic RSV Immunization Patients Under 20 months Aged Out No longer eligible based on patient's age to complete this topic Procedures Procedure Name Priority Date/Time Associated Diagnosis Comments DEPRESSION SCREENING Routine 10/11/2023 LIPID PANEL Routine 11/18/2021 HEPATITIS C SCREENING Routine 04/11/2021 HIV SCREENING Routine 04/11/2021 from Last 3 Months or Most Recently Relevant to Health Maintenance Results * Depression Screening (10/11/2023) Depression Screening Abstracted Historical Provider MD DANIEL GLOVER E * Lipid panel (11/18/2021) LDL/HDL Ratio 2 0 - 4 Triglycerides 89 0 - 150 mg/dL Cholesterol 133 0 - 200 mg/dL HDL 55 40 mg/dL LDL Cholesterol 61 0 - 100 mg/dL Blood Venous blood specimen / Unknown Historical Provider LAB BLOOD ORDERAB LES * HIV Screening (04/11/2021) Pathologist [facility] HIV Screening Abstracted Historical Provider MD DANIEL GLOVER E * Hepatitis C Screening (04/11/2021) Hepatitis C Screening Abstracted Historical Provider MD DANIEL Mckeon from Last 3 Months or Most Recently Relevant to Health Maintenance Care Teams Medical Historian Relationship Specialty Start Date End Date Hortensia Barnes MD [address] [place] [id number] PCP - General 05/03/22
--- OUTSIDE RECORDS SUMMARY | 2024-03-07 09:30 | XMS_ITS | Encounter Summary ---
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 [address] [place] [id number] Igor Murillo MD Social History Tobacco Use Types Packs/Day Years Used Date Smoking Tobacco: Never Alcohol Use Standard Drinks/Week Comments Not Asked 0 (1 standard drink = 0.6 oz pur e alcohol) Sex Assigned at Date Recorded Not on file Job Start Date Occupation Industry Not on file Not on file Not on file documented as of this encounter Plan of Treatment Not on file documented as of this encounter Visit Diagnoses Not on filedocumented in this encounter Care Teams Clinical Research Scientist Relationship Specialty Start Date End Date Sally Tee MD PCP - General 00 02/08/21 Chetna Lui FNP [address] [place] [address] [id number] PCP - General Pediatrics 02/09/21 04/05/22 Mireya Machado PA-C [address] [place] [address] PCP - General Internal Medicine 04/06/22 05/02/22 Antonio Barnes MD [address] [place] [address] PCP - General Internal Medicine 05/03/22 documented as of this encounter
--- OUTSIDE RECORDS SUMMARY | 2024-03-07 09:30 | XMS_ITS | Clinical Summary ---
Author Organization [facility] Address [address] [place] [address] Care Team Providers Care Dry Cell Sealer Name Role Phone Antonio Barnes MD Primary Care Provider [phone] Allergies No known active allergies Medications Medication Sig Dispensed Refills Start Date End Date Status sumatriptan (IMITREX) 20 MG/ACT nasal spray 1 [place] by Nasal route as needed for Migraine. 1 Each 5 04/11/2021 Active ondansetron (Zofran) 4 MG tabletIndications:Mi graine syndrome,Insomnia, unspecified type,Night terrors Take 1-2 Tablets by mouth every 8 hours as needed for Nausea. 30 Tablet 0 06/13/2023 Active magnesium oxide (MAG-OX) 400 MG tablet Take 1 Tablet by mouth daily. 90 Tablet 1 06/13/2023 Active pramipexole (MIRAPEX) 0.25 MG tablet Take 1 Tablet by mouth 3 times daily. 270 Tablet 5 06/13/2023 Active prazosin (MINIPRESS) 1 MG capsule TAKE 3 CAPSULES BY MOUTH AT BEDTIME FOR 360 DAYS. 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 07/07/2021 Anxiety 07/07/2021 Deviated septum 03/20/2017 Overview: ENT Dr Richardson 06/22 - recommends defering surgery till he is done playing contact sports Neck injury 08/18/2016 Overview: 11/20 - football injury; PT referral pneumonia 12/22/2014 Overview: 12/20, RUL Overweight 02/13/2011 Overview: Mild since age 9 Acute sinusitis 01/27/2011 Overview: 05/16 arachnoid cyst L temporal fossa 09/01/19 Overview: seen by dr heller 2004, MRI unchanged from 07/10 - 09/10, repeat 02/14- unchnaged Ref by Dr Ford [facility] for opinion due to unusual headaches 02/14, seen by Dr Kishore Gates, felt cyst not contributory to headaches and no rx indicated Migraine syndrome 08/31/2005 Overview: EEG nl 09/09 Dr ford 11/10 previously [...] 20 mg prn, 4-5 episodes a year Resolved Problems Problem Noted Date Resolved Date Cervical myofascial pain syndrome 11/24/2014 08/02/2015 Overview: 11/19 - seen by Dr Ford, likely due to football injury, ref to PT Fracture of phalanx of thumb 11/25/200910/2011 Snoring 04/30/2007 08/02/2015 Overview: Borderline sleep study 04/12, seen by dr ewing 06/12, ent, T& A 07/13 Adult onset fluency disorder 01/02/2006 Overview: by mom's report 11/09, referred for eval at [facility] Attention deficit hyperactivity disorder (ADHD) 01/02/2006 02/13/2011 Overview: referred for OT eval at [facility] 11/09 since school questioning sensory motor integration disorder CORE eval 07/12 - avg - hi avg IQ and achievement Meets criteria for ADHD, never rx'd, sx resolved by age 7 Immunizations Name Administration Dates Next Due DTaP 10/13/2005, 3,04/25/2001,03/05,01/01/2001 HIB 02/12/2002, 2,03/05/2001,01/01 HPV (Gardasil) 07/24/2014 Hepatitis B-3 Dose (<19yrs) 08/22/2001, 1,2000 Influenza (6-35 months) 03/17/2002,02/12/2002 Influenza (> 6 Months) 09/22/2017,2011,10/18/2009,11/12,01/23/2007,01/04/2006 Influenza (>6 Months) Split Preservative Free 01/10/2016,02/13/2011 MMR (Jbudwne-Ovpme-Zqejdtb) 01/04/2005, 3 Meningococcal (Menactra) 04/22/2018,02/23/2012 Pneumoccoccal(Adult) Polysac charide PPSV23 01/01/2001 Pneumococcal(Pedi) Conjugate PCV-7 01/04,04/25/2001,03/05/2001,01/01 Polio (IPV) 07/24/2014, 2,08/22/2001,03/05,01/01/2001 Tdap 02/23/2012 Varicella 10/18/2009,10/31/2001 Family History Medical History Relation Name Comments Cancer, Other Maternal Grandmother great thyroi d Cataract Maternal Grandmother great OR Maternal Grandmother steve age 69 Relation Name Status Comments Maternal Grandmother steve Alive Mother Alive Social History Tobacco Use Types Packs/Day Years Used Date Smoking Tobacco: Never Smokeless Tobacco: Never Tobacco Cessation:Counseling Given: Not Answered Comments:Mom smokes outside Alcohol Use Standard Drinks/Week Comments No 0 (1 standard drink = 0.6 oz pur e alcohol) Sex Assigned at Date Recorded Not on file Job Start Date Occupation Industry Not on file Not on file Not on file Last Filed Vital Signs Vital Sign Reading Time Taken Comments Blood Pressure 115/75 08/14/2023 3:43 PM EDT Pulse 68 08/14/2023 3:43 PM EDT Temperature 36.7 ??C (98.1 ??F) 08/14/2023 3:43 PM ED T Respiratory Rate 14 07/07/2021 2:27 PM EDT Oxygen Saturation 98% 03/20/2017 8:41 AM EST Inhaled Oxygen Concentration - - Weight 79.8 kg (176 lb) 08/14/2023 3:43 PM EDT Height 170.2 cm (5' 7 ) 08/14/2023 3:43 PM EDT Body Mass Index 27.57 08/14/2023 3:43 PM EDT Plan of Treatment Health Maintenance Due Date Last Done Comments Covid-19 Vaccine (#1) 04/23/2001 HUMAN PAPILLOMAVIRUS (HPV) ( 2 - Male 2-dose series) 01/23/2015 07/24/2014 DTAP/TDAP/TD (7 - Td or Tdap) 02/22/2022, 10/13/2005, 12/30/2002, Additional history exists GONORRHEA & CHLAMYDIA SCREENING 04/11/2022 , 04/22/2018 INFLUENZA (#1) 2023 09/22/2017, 12/0 06/2015, 01/23/2012, Additional history exists BMI CHECK/ADVISE 02/06/2024 07/07/2021, , 04/22/2018, Additional history exists DEPRESSION SCREENING/FOLLOWUP 02/06/2024, 04/14/2023, 11/09/2022, Additional history exists SOCIAL NEEDS SCREENING 02/06/2024 04/22/2018 BASELINE HEALTH EXAM 18-39 11/18/202611/18, 11/18/2021, 04/11/2021 CHOLESTEROL SCREENING 11/18/2026 11/18/2021, 014 PNEUMOCOCCAL VACCINE FOR HIG H RISK PATIENTS (#1) 2065 01/01/2001 Care Teams Dry Cell Sealer Relationship Specialty Start Date End Date Antonio Barnes MD [address] [place] [id number] PCP - General Internal Medicine 05/03/22
--- OUTSIDE RECORDS SUMMARY | 2024-03-07 09:30 | XMS_ITS | Clinical Summary ---
Author Organization [facility] Address [address] [place] [address] Care Team Providers Care Senior Systems Developer Name Role Phone Chetna Lui APRN Primary Care Provider [phone] Allergies No known active allergies Medications Medication Sig Dispensed Refills Start Date End Date Status traZODone (DESYREL) 50 MG tablet Take 1 tablet (50 mg total) by mouth every night at bedtime. 0 Active sertraline (ZOLOFT) 50 MG tablet Take 1.5 tablets (75 mg total) by mouth daily. 0 Active busPIRone (BUSPAR) 5 MG tablet Take 1 tablet (5 mg total) by mouth 3 (three) times a day. 0 Active SUMAtriptan (IMITREX) 25 MG tablet Take 1 tablet (25 mg total) by mouth every 2 (two) hours as needed for migraine. 0 Active Active Problems No known active problems Social History Tobacco Use Types Packs/Day Years Used Date Smoking Tobacco: Never Smokeless Tobacco: Never Tobacco Cessation:Counseling Given: Not Answered Alcohol Use Standard Drinks/Week Comments Yes 0 (1 standard drink = 0.6 oz pur e alcohol) Social Sex and Gender Information Value Date Recorded Sex Assigned at Not on file Gender Identity Not on file Sexual Orientation Not on file Job Start Date Occupation Industry Not on file Not on file Not on file Last Filed Vital Signs Vital Sign Reading Time Taken Comments Blood Pressure 120/64 03/17/2022 10:41 AM EST Pulse 60 03/17/2022 10:41 AM EST Temperature 36.9 ??C (98.5 ??F) 03/17/2022 10:[address] Respiratory Rate - - Oxygen Saturation 99% 03/17/2022 10:41 AM EST Inhaled Oxygen Concentration - - Weight 72.6 kg (160 lb) 03/17/2022 10:41 AM EST Height - - Body Mass Index - - Plan of Treatment Health Maintenance Due Date Last Done Comments Hepatitis B Vaccines (1 of 3 - 3-dose series) 2000 Hepatitis C Screening 2000 COVID-19 Vaccine (#1) 04/23/2001 Depression Screening 2012 Preventative Health Evaluation 2018 DTap / Tdap / Td (7 - Td or Tdap) 02/22/2022 02/23/2012, 10/13/2005, 12/30/2002, Additional history exists Influenza Vaccine (#1) 2023 8, 01/23/2012, 10/18/2009, Additional history exists Pneumococcal Vaccine Completed 01/04/2005, 04/25/2001, 03/05/2001, Additional history exists RSV Ped < 20 months Aged Out No longe r eligible based on patient's age to complete this topic Care Teams Senior Systems Developer Relationship Specialty Start Date End Date Chetna Lui APRN [address] [place] [address] PCP - General Registered Nurse 01/11/22
--- OUTSIDE RECORDS SUMMARY | 2024-03-07 09:30 | XMS_ITS | Encounter Summary ---
Author Organization [facility] Address [address] [place] [address] Care Team Providers Care Sander And Polisher Name Role Phone Sally Tee MD Primary Care Provider Chetna Lantigua Primary Care Provider [phone] Mireya Machado PA-C Primary Care Provider + Antonio Barnes MD Primary Care Provider [phone] Encounter Details Date Type Department Care Team Description 09/22/2017 Walk In Clinic Visit Medical Records [address] [place] [id number] Abstract, Provider Social History Tobacco Use Types Packs/Day Years Used Date Smoking Tobacco: Never Smokeless Tobacco: Never Comments:Mom smokes outside Alcohol Use Standard Drinks/Week [...] on filedocumented in this encounter Care Teams Sander And Polisher Relationship Specialty Start Date End Date Sally Tee MD PCP - General 00 02/08/21 Chetna Lui FNP [address] [place] [address] [phone] PCP - General Pediatrics 02/09/21 04/05/22 Mireya Machado PA-C [address] [place] [address] PCP - General Internal Medicine 04/06/22 05/02/22 Antonio Barnes MD [address] [place] [address] PCP - General Internal Medicine 05/03/22 documented as of this encounter
--- OUTSIDE RECORDS SUMMARY | 2024-03-07 09:30 | XMS_ITS | Encounter Summary ---
Author Organization [facility] Address [address] [place] [address] Care Team Providers Care Certified Pediatric Nurse Practitioner Name Role Phone Sally Tee MD Primary Care Provider Chetna Lantigua Primary Care Provider [phone] Mireya Machado PA-C Primary Care Provider + Antonio Barnes MD Primary Care Provider [phone] Encounter Details Date Type Department Care Team Description 09/08/2010 Womens Health Nurse Practitioner Report Medical Records [address] [place] [phone] Swapnil Juárez MD Social History Tobacco Use Types Packs/Day [...] on filedocumented in this encounter Care Teams Certified Pediatric Nurse Practitioner Relationship Specialty Start Date End Date Sally Tee MD PCP - General 00 02/08/21 Chetna Lui FNP [address] [place] [address] [phone] PCP - General Pediatrics 02/09/21 04/05/22 Mireya Machado PA-C [address] [place] [address] PCP - General Internal Medicine 04/06/22 05/02/22 Antonio Barnes MD [address] [place] [address] PCP - General Internal Medicine 05/03/22 documented as of this encounter
--- OUTSIDE RECORDS SUMMARY | 2024-03-07 09:30 | XMS_ITS | Encounter Summary ---
Author Organization [facility] Address [address] [place] [address] Care Team Providers Care C 13 Catapult Operator Name Role Phone Sally Tee MD Primary Care Provider Chetna Lantigua Primary Care Provider [phone] Mireya Machado PA-C Primary Care Provider + Antonio Barnes MD Primary Care Provider [phone] Encounter Details Date Type Department Care Team Description 11/20/2014 Machined Parts Quality Inspector Report Medical Records [address] [place] [address] Swapnil Juárez MD Social History Tobacco Use Types Packs/Day Years Used Date Smoking Tobacco: Never Comments:Mom smokes outside Alcohol Use Standard Drinks/Week Comments Not Asked [...] on filedocumented in this encounter Care Teams C 13 Catapult Operator Relationship Specialty Start Date End Date Sally Tee MD PCP - General 00 02/08/21 Chetna Lui FNP [address] [place] [address] [phone] PCP - General Pediatrics 02/09/21 04/05/22 Mireya Machado PA-C [address] [place] [address] PCP - General Internal Medicine 04/06/22 05/02/22 Antonio Barnes MD [address] [place] [address] PCP - General Internal Medicine 05/03/22 documented as of this encounter
--- OUTSIDE RECORDS SUMMARY | 2024-03-07 09:30 | XMS_ITS | Encounter Summary ---
Author Organization [facility] Address [address] [place] [address] Care Team Providers Care Die Welder Name Role Phone Sally Tee MD Primary Care Provider Chetna Lantigua Primary Care Provider [phone] Mireya Machado PA-C Primary Care Provider + Antonio Barnes MD Primary Care Provider [phone] Encounter Details Date Type Department Care Team Description 04/29/2010 Social Worker Assistant Report Medical Records [address] [place] [address] Swapnil Juárez MD Social History Tobacco Use [...] on filedocumented in this encounter Care Teams Die Welder Relationship Specialty Start Date End Date Sally Tee MD PCP - General 00 02/08/21 Chetna Lui FNP [address] [place] [address] [phone] PCP - General Pediatrics 02/09/21 04/05/22 Mireya Machado PA-C [address] [place] [address] PCP - General Internal Medicine 04/06/22 05/02/22 Antonio Barnes MD [address] [place] [address] PCP - General Internal Medicine 05/03/22 documented as of this encounter
--- OUTSIDE RECORDS SUMMARY | 2024-03-07 09:30 | XMS_ITS | Encounter Summary ---
Author Organization [facility] Address [address] [place] [address] Care Team Providers Care Mental Health Consultant Name Role Phone Sally Tee MD Primary Care Provider Chetna Lantigua Primary Care Provider [phone] Mireya Machado PA-C Primary Care Provider + Antonio Barnes MD Primary Care Provider [phone] Encounter Details Date Type Department Care Team Description 01/21/2015 Loom Winder Tender Report Medical Records [address] [place] [address] Swapnil Juárez MD Social History Tobacco Use [...] on filedocumented in this encounter Care Teams Mental Health Consultant Relationship Specialty Start Date End Date Sally Tee MD PCP - General 00 02/08/21 Chetan Lui FNP [address] [place] [address] [phone] PCP - General Pediatrics 02/09/21 04/05/22 Mireya Machado PA-C [address] [place] [address] PCP - General Internal Medicine 04/06/22 05/02/22 Antonio Barnes MD [address] [place] [address] PCP - General Internal Medicine 05/03/22 documented as of this encounter
--- OUTSIDE RECORDS SUMMARY | 2024-03-07 09:30 | XMS_ITS | Encounter Summary ---
Author Organization [facility] Address [address] [place] [address] Care Team Providers Care Natural Gas Technician Name Role Phone Antonio Barnes MD Primary Care Provider [phone] Encounter Details Date Type Department Care Team Description 09/07/2023 Psych Rn Report Medical Records [address] [place] [address] Fred Magana PA-C Social History Tobacco Use Types Packs/Day Years [...] on filedocumented in this encounter Care Teams Natural Gas Technician Relationship Specialty Start Date End Date Antonio Barnes, [address] [place] [address] PCP - General Internal Medicine 05/03/22 documented as of this encounter
--- OUTSIDE RECORDS SUMMARY | 2024-03-07 09:30 | XMS_ITS | Encounter Summary ---
Author Organization [facility] Address [address] [place] [address] Care Team Providers Care Belt Dresser Name Role Phone Sally Tee MD Primary Care Provider Chetna Lantigua Primary Care Provider Mireya Machado PA-C Primary Care Provider + Antonio Barnes MD Primary Care Provider [phone] Encounter Details Date Type Department Care Team Description 03/28/2013 Junior Accountant Report Medical Records [address] [place] [address] Swapnil Juárez MD Social History Tobacco Use [...] on filedocumented in this encounter Care Teams Belt Dresser Relationship Specialty Start Date End Date Sally Tee MD PCP - General 00 02/08/21 Chetna Lui FNP [address] [place] [address] [phone] PCP - General Pediatrics 02/09/21 04/05/22 Mireya Machado PA-C [address] [place] [address] PCP - General Internal Medicine 04/06/22 05/02/22 Antonio Barnes MD [address] [place] [address] PCP - General Internal Medicine 05/03/22 documented as of this encounter
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
--- NOTE | 2024-03-07 09:47 | MHC.AM.SUB ---
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 withdrawal sx: restless legs --most bothersome gabapentin ineffective for restless legs Denies any MARLA treatment history Denies overdose cocaine --2 years ago no alcohol Family Hx -mother OUD -father AUD started 3 years ago Suboxone last year 8mg no seroquel Results AMB 14 Panel Urine Drug Screen Urine Marijuana (THC) Positive Last Edit by Mellissa Reynoso RN on 03/07/24 13:44 Urine Cocaine Negative Last Edit by Mellissa Reynoso RN on 03/07/24 13:44 Urine Morphine Negative Last Edit by Mellissa Reynoso RN on 03/07/24 13:44 Urine Methamphetamine Negative Last Edit by Mellissa Reynoso RN on 03/07/24 13:44 Urine Amphetamine Negative Last Edit by Mellissa Reynoso RN on 03/07/24 13:44 Urine Benzodiazepine Negative Last Edit by Mellissa Reynoso RN on 03/07/24 13:44 Urine Barbiturates Negative Last Edit by Mellissa Reynoso RN on 03/07/24 13:44 Urine Methadone Negative Last Edit by Mellissa Reynoso RN on 03/07/24 13:44 Urine Buprenorphine Negative Last Edit by Mellissa Reynoso RN on 03/07/24 13:44 Urine Tricyclic Antidepressant Negative Last Edit by Mellissa Reynoso RN on 03/07/24 13:44 Urine MDMA Negative Last Edit by Mellissa Reynoso RN on 03/07/24 13:44 Urine Oxycodone Positive Last Edit by Mellissa Reynoso RN on 03/07/24 13:44 Urine Phencyclidine Negative Last Edit by Mellissa Reynoso RN on 03/07/24 13:44 Urine Propoxyphene Negative Last Edit by Mellissa Reynoso RN on 03/07/24 13:44 [facility] Medical History (Updated 01/28/24 @ 08:41 by RENE Rey) Anemia Surgical History History of tonsillectomy H/O adenoidectomy Family History Mother Bipolar 1 disorder Depression Anxiety Brother Anxiety Depression Schizophrenia Social History Alcohol intake: never e-Cigarette/Vaping Use: Currently Using Assessment & Plan Assessment & Plan Orders: Orders AMB 14 Panel Urine Drug Screen Today Z51.81 - Encounter for therapeutic drug level monitoring Medications: New baclofen 10 mg PO TID PRN 21 tabs 0RF muscle spasm Changed From buprenorphine-naloxone 8-2 mg 1 film sublingual BID To buprenorphine-naloxone 8-2 mg 1 film sublingual TID 21 ea 0RF MAT Intake Nursing Intake Reason for visit: Opioid Use Are you currently using?: Yes What are you taking?: Pressed Pills Percocets When was your last use?: Today this morning How much?: 1 pill What is your source of income?: 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 Current PCP: Ria Date of last visit: within the last year Referral Source: Sleep/Nuerology Substance Abuse History Substance Abuse History (includes route, frequency and quantity): Buprenorphine/naloxone (was given and tried in the past by lilliam while admitted for a psych stay) and Marijuana Age of first use: Percocets at 19 Marijuana at 13 Social History Domestic Violence concerns: Denies Children: No Do you have a support system?: Yes family Current mode of transportation?: He drives Where are you currently residing?: Home IV Drug Use Have you ever shared needles?: No Have you ever belonged to a needle exchange program?: No Do you buy needles at a pharmacy?: No Have you ever overdosed?: No Have you ever been hospitalized for an overdose?: No Was Naloxone administered?: Not applicable Recovery History Have you had any periods of recovery?: Yes What is your longest time in recovery?: For 3 months last year after being admitted for psych purposes Have you ever had inpatient treatment for your substance abuse disorder?: No Have you been in an inpatient detoxification program?: No Have you been in an inpatient Rehab/[place] house?: No Have you been in an outpatient Methadone Maintenance program?: No Have you been in an outpatient Suboxone Maintenance program?: Yes Have you been in an AA/NA support program?: No Have you had a Recovery Support Weed Sprayer?: No Have you had Peer Support?: No Behavioral Health History Do you have a current provider? If so, who?: No, but will be seeing Jenise Nelson diagnosis: Anxiety/Depression History of other addictive behavior: Denies History of inpatient psychiatric hospitalization? If so, how many? Most Recent? Where?: Yes, at [facility] once last april History of self harming thoughts?: No History of homicidal or suicidal intentions?: No Medical Conditions Endocarditis?: No Skin Infection: No Seizure related to withdrawal or overdose: No Head or brain injury: No Hepatitis A (if yes, have you been treated?): No Hepatitis B (if yes, have you been treated?): No Hepatitis C (if yes, have you been treated?): No HIV (if yes, have you been treated?): No TB (if yes, have you been treated?): No Other: No Do you have any chronic pain conditions?: Spinal stenosis and a herniated t4
== END 2024-03-07 10:15 | disposition home or self-care (01) ==
LOC: HO.HCC 09:06
PROVIDERS: PCP Internal Medicine; Visit Provider Nurse Practitioner Psychiatric/Mental Health
DX: Z51.81 Encounter for therapeutic drug level monitoring (principal)

== ENCOUNTER → 2024-03-07 09:06 | Outpatient (BNVA) | payer BC, SELFPAY | PROVIDERS: PCP Internal Medicine; Visit Provider Nurse Practitioner Psychiatric/Mental Health | DX: F11.20 Opioid dependence, uncomplicated (principal) | CPT/HCPCS: 80307; 96127 ==

== ENCOUNTER 2024-04-04 10:25 | Outpatient (AMB) | payer BC, SELFPAY ==
[2024-04-04 10:39] VITALS: BP 120/80; PULSE 88; RESP 22; O2SAT 98
--- NOTE | 2024-04-04 10:39 | A.OFFVISCC_ITS ---
Vital Signs 04/04/24 10:39 BP 120/80 Blood Pressure Location Rt radial Position Sitting Respiration 22 H Pulse 88 Pulse Source Pulse Oximeter Pulse Oximetry (%) 98 Intake Visit Reasons: MAT visit Allergies No Known Allergies Allergy (Verified 01/28/24 07:53) HPI HPI MAT visit: Details: Patient presents for follow up Has not transitioned to buprenorphine yet Plans to transition today Has been taking Wellbutrin and finds that his mood is improved Sleep and overall motivation improved Review of Systems Const Reports as per HPI, Reports body aches (r/t opiate withdrawal ), Reports chills and Reports lethargy Physical Exam Vital Signs: Last Vital Signs Pulse 88 04/04/24 10:39 Resp 22 H 04/04/24 10:39 BP 120/80 04/04/24 10:39 Pulse Ox 98 04/04/24 10:39 Const General: cooperative and anxious Nutritional Appearance: average body habitus Orientation/consciousness: patient oriented x3 Limitations: no limitations Neuro General: patient oriented x3 Psych Appearance: grossly normal Speech and movement: Normal speech and movement present Affect: normal affect Attitude: cooperative Thought process: Normal thought process present Thought content: Normal thought content present Insight: Good insight present (Psych) Judgement: Good judgement present (Psych) [facility] Medical History (Updated 01/28/24 @ 08:41 by RENE Rey) Anemia Surgical History History of tonsillectomy H/O adenoidectomy Family History Mother Bipolar 1 disorder Depression Anxiety Brother Anxiety Depression Schizophrenia Social History Alcohol intake: never e-Cigarette/Vaping Use: Currently Using Assessment & Plan Assessment & Plan (1) Opioid use disorder: Code(s): F11.90 - Opioid use, unspecified, uncomplicated Category: Medical Plan: * patient plans to start suboxone toinght * no reill needed * follow up 2 weeks
--- OUTSIDE RECORDS SUMMARY | 2024-04-04 11:45 | XMS_ITS | Clinical Summary ---
[facility] Address [address] [place] [address] Care Team Providers Care Sign Painter Name Role Phone Chetna Lui APRN Primary Care Provider [phone] Allergies No known active allergies Medications Medication [...] age to complete this topic Care Teams Sign Painter Relationship Specialty Start Date End Date Chetna Lui APRN [address] [place] [address] PCP - General Registered Nurse 01/11/22
--- OUTSIDE RECORDS SUMMARY | 2024-04-04 11:45 | XMS_ITS | Clinical Summary ---
Author Organization [facility] [address] [facility] Address [address] [place] [address] Phone Care Team Providers Care Lead Generator Name Role Phone Hortensia Barnes MD Primary Care Prov ider Allergies No known active allergies Medications magnesium oxide (MAG-OX) 400 mg (241.3 elemental [...] SUMAtriptan (IMITREX) 20 mg/actuation nasal spray 1 [place] by Nasal route as needed for Migraine. [...] 02/14- unchnaged Ref by Dr Ford to [facility] for opinion due to unusual headaches [...] 20 mg prn, 4-5 episodes a year Immunizations Name Administration Dates Next Due DTaP (Infanrix) 6wks to less than 7yo ,12/30/2002,04/25/2001,03/05,01/01/2001 LNlP-QMS-OFH (Pentacel) 2mo to less than 5yo 02/12/2002,04/25/2001,03/05/2001,01/01 [...] Recorded Sex Assigned at Not on file Legal Sex Male 9:30 AM EST Gender Identity Not on file Sexual Orientation Not on file Obstetrics History Last Filed [...] (2 - Male 2-dose series) 01/23/2015 07/24/2014 Meningococcal B Vacine (1 of 2 - Standard) 2016 Social Influencers of Health Screening 01/08/2022 DTaP,Tdap,and Td Vaccines (7 - Td or Tdap) 02/22/2022 02/23/2012, 10/13/2005, 12/30/2002, Additional history exists COVID-19 Vaccine ( - season) 2023 Influenza Vaccine (#1) 2023 8, [...] Health Maintenance Results * Depression Screening (10/11/2023) Pathologist [facility] Depression Screening Abstracted [facility] Provider HEALTH MAINTENANCE Final Result * Lipid panel (11/18/2021) [facility] LDL/HDL Ratio 2 0 - 4 Triglycerides 89 0 - 150 mg/dL Cholesterol 133 0 - 200 mg/dL HDL 55 >=40 mg/dL LDL Cholesterol 61 0 - 100 mg/dL Blood Venous blood specimen / Unknown [facility] Provider LAB BLOOD ORDERABLES [place] l Result * HIV Screening (04/11/2021) [facility] HIV Screening Abstracted [facility] Provider HEALTH MAINTENANCE Final Result * Hepatitis C Screening (04/11/2021) [facility] Hepatitis C Screening Abstracted [facility] Provider HEALTH MAINTENANCE Final Result from Last 3 Months or Most Recently Relevant to Health Maintenance Insurance [facility] Care Teams Lead Generator Relationship Specialty Start Date End Date Hortensia Barnes MD [address] [place] [id number] PCP - General 05/03/22
== END 2024-04-04 11:07 | disposition home or self-care (01) ==
PROVIDERS: PCP Internal Medicine; Visit Provider Nurse Practitioner Psychiatric/Mental Health
DX: F11.90 Opioid use, unspecified, uncomplicated (principal)
CPT/HCPCS: 99214

== ENCOUNTER 2024-05-01 09:53 | Outpatient (AMB) | payer BC, SELFPAY ==
--- NOTE | 2024-05-01 10:07 | A.OFFVIS_ITS ---
Vital Signs 05/01/24 10:09 Weight 163 lb BP 112/64 Blood Pressure Location Lt brachial Position Sitting Pulse 65 Pulse Source Pulse Oximeter Pulse Oximetry (%) 95 Oxygen Delivery Method Room Air Intake Visit Reasons: Follow Up Intake Note: Patient presents follow up Sleep medication. No Labs Civil Engineering Drafter Required: No Accompanied by: Self / Same As Patient Allergies No Known Allergies Allergy (Verified 05/01/24 10:09) Medication List - Last Reconciled 05/01/24 by RENE Rey baclofen 10 mg PO TID PRN buprenorphine-naloxone 8-2 mg 1 film sublingual BID bupropion HCl XL 300 mg PO QAM 30 days ixdgjdelit-vlfjwsxsrphzu-jsnf 50-325-40 mg 1 cap PO Q4H PRN 30 days sumatriptan 20 mg/actuation 20 mg intranasal Q2H PRN HPI Comments Details: 23-yr-old male presents for f/u visit of restless leg, sleep disorder, mood disorder. He has an upcoming appointment at [facility]. He is not sure if he has had psychiatry consult yet. He has started seeing [facility]- started on suboxone which has been helpful. 02/08/2024, orexin a hypcretin 1 CSF: 244 pg/mL- within normal limits. Since the last visit, patient has stopped gabapentin, quetiapine, and Latuda, were not helping. Patient was started on bupropion XL 50 mg daily in the morning. He feels the buproprion is the first tx that has started to be helpful. He reports his sleep schedule is better, as he is going to work and then going to school- so by the time he goes to bed at night he is tired. 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 Typically returning home around 11am, and needs an hour or two or more to relax and get ready for bed before he can fall asleep. Typically waking up around 6:30am. He continues to have fragmented sleep- waking up 1-2 times a night to void. However, there are still some days where he wakes up feeling tired, irritable, angry, and then may call out of work to catch up on sleep. He continues to have intense vivid dream REM sleep. He can easily fall asleep when sitting inactive, such as in a waiting room or a passenger in the car. He may dream when he falls asleep as a passenger. Notes his restless leg symptoms are worse when he is more anxious. He has occasional migraine since childhood- last was a few months ago, usually lasts a whole day. Migraine is a throbbing headache a/w photophobia, phonophobia, nausea, vomiting, activity tolerance. Sumatriptan nasal spray helps some, but not fully and causes sleepiness. 01/28/2024 HPI: Since the last visit, patient has started Latuda 20 mg q.d., which we increased to 40 mg q.d. He is tolerating this well. However, he has not noticed a significant improvement in his mood. He can still become easily frustrated and angry, especially if he does not do as well as he would like with his schoolwork. 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 He did not restart hydroxyzine, as the refill contained red tablets, and his mother had told him that he had had a reaction to red in the past. He stated he was given a red medication to calm him down prior to MRI when he was younger, and it had the opposite reaction, where they had to give him much more of a dose unusual. Patient states he is able to eat foods with red dye in them, such as M and M[employer] and skittles. He is trying to reduce his fentanyl use. Now finds that he is prone to use fentanyl when his restless legs symptoms are worse. He describes the RLS symptoms as cramping, burning, like a creepy crawly sensation, and an urge to move. These will typically occur around 03:00, about 3 hours after going to sleep. The other night, he did try some of his old gabapentin 300 mg- was prescribed for back pain, which did offer some relief. He does use a weighted blanket. Getting up and moving can help, but sometimes he is up for hours walking. He has an [facility] on February [facility]. He is scheduled for the lumbar puncture for CSF orexin level also on February 07. 01/02/24 HPI: 12/31/2023 in-lab sleep study was significant for a short REM latency of 2.5 minutes. There was no evidence of sleep apnea or sleep-related movement disorders in the study. His sleep study did not show sleep apnea- AHI was AHI 1/hr, O2 ana 88%, sleep onset 0.2 min, REM sleep onset was 2.5 minutes. AHI 1.5 per hour sleep, average oxygen level 95% with O2 ana of 89%. Sleep efficiency of 76%. Periodic limb movement of sleep 0 per hour. Unfortunately MSLT component of sleep study could not be analyzed, as patient had a positive urine screen for urine opiates, oxycodone, fentanyl, marijuana. Patient endorses that he had used a substance which he states is equivalent to fentanyl the morning of the sleep study. He states most likely she did use the same substance prior to his last sleep study. Patient endorses that in the past he had become dependent on opioids following being medicated for back pain. More recently, he is using this fentanyl equivalent substance proximally 4 times a week to manage anxiety and panic attacks, which he attributes to living with his mother and grandmother which is inducing increased stress. He denies alcohol use. He moved in with his mother and grandmother as he has enrolled in a [employer] training program. She is hoping to complete this 10 month program to be able to move to the [facility]. He does not currently have a psychiatric care team. Patient had previously taking sertraline at 75-100 mg a day, states it was ineffective, made him feel a lack of motivation. However he now notes that he is not feeling very mentally stable at this point. He stopped trazodone 75mg prior to the MSLT study. He denies history of known kendall. Sometimes he can f eel as if voices are present. He denies suicidal ideation. He states both his mother and grandmother have a history of bipolar and substance abuse issues. Reviewed patient's sleep symptoms: He can still unrefereshing sleep. He tosses and turns a lot at night. He is prone to dreaming. Easily falls into dream sleep, especially during naps. He can have sleep paralysis- where in the dream he feels paralyzed. He wakes up and feels his dream is real. Today endorses weakness with strong emotion. He occasionally has restless legs, urge to move. He has always been to fall asleep in class or when not interested, he easily falls asleep when inactive, long car rides. His mother has similar sleep symptoms as well. [facility] Medical History (Updated 01/28/24 @ 08:41 by RENE Rey) Anemia Surgical History History of tonsillectomy H/O adenoidectomy Family History Mother Bipolar 1 disorder Depression Anxiety Brother Anxiety Depression Schizophrenia Social History Alcohol intake: never e-Cigarette/Vaping Use: Currently Using Physical Exam Vital Signs: Last Vital Signs Pulse 65 05/01/24 10:09 BP 112/64 05/01/24 10:09 Pulse Ox 95 05/01/24 10:09 Oxygen Delivery Method Room Air 05/01/24 10:09 Const General: cooperative and no acute distress Orientation/consciousness: patient oriented x3 Resp Effort & Inspection: normal respiratory effort and able to speak in complete sentences Neuro General: patient oriented x3 Cognition (Neuro): normal cognition Psych Appearance: grossly normal Mental Status: mental status grossly normal Speech and movement: Normal speech and movement present Affect: normal affect Attitude: cooperative Assessment & Plan Assessment & Plan (1) Excessive daytime sleepiness: Code(s): G47.19 - Other hypersomnia Category: Medical (2) REM behavioral disorder: Code(s): G47.52 - REM sleep behavior disorder Category: Medical (3) Restless legs syndrome: Code(s): G25.81 - Restless legs syndrome Category: Medical (4) Bipolar depression: Code(s): F31.9 - Bipolar disorder, unspecified Category: Medical (5) Opioid use disorder: Code(s): F11.90 - Opioid use, unspecified, uncomplicated Category: Medical Plan For excessive daytime sleepiness, RLS, possible narcolepsy type 2/IH: Reviewed results of CSF orexin a hypcretin- 244, which is considered normal. Check labs as ordered for common etiologies of RLS s/s. Tertiary sleep clinic consult request order at [facility] as scheduled. Simple strategies for RLS treatment, including stretching, OTC RLS topical creams, mild compression tx's, weighted blankets. Patient may benefit from reading ?Navigating life with restless leg syndrome ?by Dr. Herb Tinajero. For mood disorder compounded by substance use disorder: Note, patient maintains that previous substance use use to manage mood and sleep symptoms. Since last visit, Latuda, gabapentin, quetiapine were discontinued. Increase bupropion XL from 150 mg daily in the morning to 350 mg daily in the morning Follow-up with [facility] as scheduled. We will again request Psychiatry and psychotherapy evaluation and treatment. For acute migraine treatment: Trial zolmitriptan 5mg intranasal spray at onset of migraine with nausea, may repeat in 2 hours, max of 2 sprays per 24 hours.. Max of 2 tabs (200mg) per 24 hours. Discontinue Sumatriptan 20 mg intranasal spray at onset of migraine with aura, may repeat in 2 hours. Max of 2 tabs brace per 24 hours. May take triptan with OTC Tylenol 650-1,000mg every 4-6 hours, Ibuprofen (liquid gels) 600mg every 6 hours, or Naproxen (liquid gels) 440mg q 12 hrs prn. Do not take sumatriptan nasal spray within 24 hours of sumatriptan nasal spray. Potential adverse effects of triptans, include but are not limited to nausea, fatigue, chest tightness/tingling (usually passes within a few minutes), medication overuse headaches. Patient verbalized agreement with the above plan. Follow-up in 1-2 months or sooner as needed. Medications: New bupropion HCl XL 300 mg PO QAM 30 tabs 3RF 30 days zolmitriptan (Zomig) administer into one nostril (only); alternate nostrils; do not exceed 10 mg /24 hrs 1 spray intranasal Q2H PRN 6 ea 1RF migraine headache with nausea 30 days Discontinued bupropion HCl XL Discontinued Reason: Doctor's Order 150 mg PO QAM 30 days 30 tabs 1RF Coding Level of Care Code Est Pt Level 4 (70169) Complex EM visit Add On G2211 Diagnoses Excessive daytime sleepiness G47.19 REM behavioral disorder G47.52 Restless legs syndrome G25.81 Bipolar depression F31.9 Opioid use disorder F11.90
[2024-05-01 10:09] VITALS: BP 112/64; PULSE 65; O2SAT 95
== END 2024-05-01 10:51 | disposition home or self-care (01) ==
LOC: HO.HSMS 09:54
PROVIDERS: PCP Internal Medicine; Visit Provider Nurse Practitioner Family
DX: G47.19 Other hypersomnia (principal); G47.52 REM sleep behavior disorder; G25.81 Restless legs syndrome; F31.9 Bipolar disorder, unspecified; F11.90 Opioid use, unspecified, uncomplicated
CPT/HCPCS: 99214

== ENCOUNTER → 2024-05-01 09:53 | Outpatient (BNVA) | payer BC, SELFPAY | PROVIDERS: PCP Internal Medicine; Visit Provider Nurse Practitioner Family ==

== ENCOUNTER → 2024-05-30 12:54 | Outpatient (BNVA) | payer OTHER, SELFPAY | PROVIDERS: PCP Internal Medicine; Visit Provider Physician Assistant Medical | DX: S61.012A Laceration without foreign body of left thumb without damage to nail, initial encounter (principal); W26.9XXA Contact with unspecified sharp object(s), initial encounter; Z23 Encounter for immunization | CPT/HCPCS: 12001; 99203 ==

== ENCOUNTER → 2024-06-02 07:53 | Outpatient (BNVA) | payer OTHER, SELFPAY | PROVIDERS: PCP Internal Medicine; Visit Provider Physician Assistant Medical | DX: S61.012A Laceration without foreign body of left thumb without damage to nail, initial encounter (principal); W26.9XXA Contact with unspecified sharp object(s), initial encounter | CPT/HCPCS: 99213 ==

== ENCOUNTER → 2024-06-09 08:11 | Outpatient (BNVA) | payer OTHER, SELFPAY | PROVIDERS: PCP Internal Medicine; Visit Provider Physician Assistant Medical | DX: S61.012D Laceration without foreign body of left thumb without damage to nail, subsequent encounter (principal); W26.9XXD Contact with unspecified sharp object(s), subsequent encounter; M79.2 Neuralgia and neuritis, unspecified | CPT/HCPCS: 99213 ==

== ENCOUNTER → 2024-06-19 08:04 | Outpatient (BNVA) | payer OTHER, SELFPAY | PROVIDERS: PCP Internal Medicine; Visit Provider Physician Assistant Medical | DX: S61.012D Laceration without foreign body of left thumb without damage to nail, subsequent encounter (principal); W26.9XXD Contact with unspecified sharp object(s), subsequent encounter; Z02.79 Encounter for issue of other medical certificate | CPT/HCPCS: 99213 ==